=== PATIENT | female | born 1970 | race Caucasian/White ===

== ENCOUNTER → 2016-12-11 | Outpatient (CLI) | payer OTHER, MEDICAID | END | disposition home or self-care (01) | LOC: RAD 13:43 | PROVIDERS: ATTEND Neurological Surgery | DX: M41.87 Other forms of scoliosis, lumbosacral region (principal); M48.02 Spinal stenosis, cervical region; M40.40 Postural lordosis, site unspecified; M25.78 Osteophyte, vertebrae; M43.28 Fusion of spine, sacral and sacrococcygeal region | CPT/HCPCS: 72082 ==

== ENCOUNTER → 2016-12-25 | Outpatient (CLI) | payer OTHER, MEDICAID ==
[~2016-12-25] MED LIST: GABA300C10 PO; LEVO75TA5 PO; MELO-184 PO
[2016-12-25 10:33] LABS: ASPARTATE AMINO TRANSFERASE 12 U/L (15-37); BLOOD UREA NITROGEN 20 mg/dL (7-18)
== END | disposition home or self-care (01) ==
LOC: STAR 09:12
PROVIDERS: ATTEND Neurological Surgery
DX: Z01.818 Encounter for other preprocedural examination (principal); M54.2 Cervicalgia; R79.1 Abnormal coagulation profile
CPT/HCPCS: 36415; 71020; 80053; 84703; 85025; 85610; 85730; 93005

== ENCOUNTER 2017-01-06 08:00 | Inpatient (IN) | payer OTHER, MEDICAID ==
[~2017-01-06] VITALS: Ht 193 cm; Wt 89.3 kg
[2017-01-06] MEDS ORDERED: FENTANYL PF 250 MCG/5ML ONE (08:03)
[2017-01-06] MEDS ORDERED: MIDAZOLAM 1 MG/ML, 2ML ONE (08:03)
[2017-01-06] MEDS ORDERED: LACTATED RINGERS 1,000 ML IV SCH (08:39)
[2017-01-06 08:43] VITALS: BP 126/72
[2017-01-06] MEDS ORDERED: THROMBIN 20,000 UNIT VIAL TP ONE (10:11)
[2017-01-06] MEDS ORDERED: BACITRACIN 50,000 UNIT ONE (10:11)
[2017-01-06] MEDS ORDERED: BUPIVACAINE/PF-EPI 0.5% 1:200K ONE (10:11)
[2017-01-06] MEDS ORDERED: DEXAMETHASONE 4 MG/ML, 1ML ONE (10:24)
[2017-01-06] MEDS ORDERED: SUCCINYLCHOLINE 20 MG/ML, 10ML ONE (10:24)
[2017-01-06] MEDS ORDERED: PROPOFOL 10 MG/ML, 20ML ONE (10:24)
[2017-01-06] MEDS ORDERED: ONDANSETRON 2MG/ML, 2ML ONE (10:24)
[2017-01-06] MEDS ORDERED: ROCURONIUM 10 MG/ML ONE (10:24)
[2017-01-06] MEDS ORDERED: CEFAZOLIN 1,000 MG ONE (10:24)
[2017-01-06] MEDS ORDERED: PROPOFOL 10 MG/ML, 50ML ONE (10:24)
[2017-01-06] MEDS ORDERED: ACETAMINOPHEN 325 MG TABLET PO PRN (10:30)
[2017-01-06] MEDS ORDERED: MEPERIDINE/PF 25MG/0.5ML IVPush PRN (10:30)
[2017-01-06] MEDS ORDERED: hydrALAzine 20 MG/ML, 1ML IV PRN (10:30)
[2017-01-06] MEDS ORDERED: OXYcodone 5 MG/5 ML ORAL.SOL UDC PO PRN (10:30)
[2017-01-06] MEDS ORDERED: METOCLOPRAMIDE 5 MG/ML, 2ML IV PRN (10:30)
[2017-01-06] MEDS ORDERED: ONDANSETRON 2MG/ML, 2ML IVPush PRN (10:30)
[2017-01-06] MEDS ORDERED: LABETALOL 5MG/ML, 20ML IV PRN (10:30)
[2017-01-06] MEDS ORDERED: OXYcodone 5 MG/5 ML ORAL.SOL UDC ONE (14:07)
[2017-01-06] MEDS ORDERED: FENTANYL PF 100 MCG/2ML ONE ×2 (14:07→15:02)
[2017-01-06] MEDS: FENTANYL PF 100 MCG/2ML IV PRN ×3 (14:10→15:04)
[2017-01-06] MEDS ORDERED: HYDROmorphone 2 MG/ML, 1ML ONE (14:22)
[2017-01-06] MEDS: HYDROmorphone 1 MG/ML, 1ML IV PRN ×4 (14:25→15:20)
[2017-01-06] MEDS: morphine SULFATE 10 MG/ML, 1ML IV PRN ×2 (16:16→21:28)
[2017-01-06] MEDS ORDERED: DIPHENHYDRAMINE 50 MG CAPSULE PO PRN (16:30)
[2017-01-06] MEDS ORDERED: HYDROcodone/APAP 5/325 TABLET PO PRN (16:30)
[2017-01-06] MEDS ORDERED: METHOCARBAMOL 1,000 MG in DEXTROSE 5% 100 ML IV ONE (16:30)
[2017-01-06] MEDS ORDERED: BISACODYL 10 MG SUPP PR PRN (16:30)
[2017-01-06] MEDS ORDERED: DIPHENHYDRAMINE 50 MG/ML, 1ML IM PRN (16:30)
[2017-01-06] MEDS ORDERED: MAGNESIUM HYDROXIDE 8%, 30ML UDC PO PRN (16:30)
[2017-01-06] MEDS ORDERED: HYDROcodone/APAP 10/325 MG TABLET PO PRN (16:30)
[2017-01-06] MEDS ORDERED: ONDANSETRON 2MG/ML, 2ML IV PRN (16:30)
[2017-01-06] MEDS: NS + 20MEQ KCL 1,000 ML IV SCH (17:16)
[2017-01-06] MEDS: OXYcodone/APAP 10/325MG TABLET PO PRN ×2 (17:47→22:58)
[2017-01-06] MEDS: DEXAMETHASONE 4 MG/ML, 1ML IV SCH (18:12)
[2017-01-06 20:14] VITALS: BP 115/72
[2017-01-06] MEDS: CALCIUM CARBONATE 500 MG TAB.CHEW PO SCH (21:28)
[2017-01-06] MEDS: GABAPENTIN 300 MG CAPSULE PO SCH (21:28)
[2017-01-06] MEDS: SENNA/DOCUSATE TABLET PO SCH (21:28)
[2017-01-07] MEDS: METHOCARBAMOL 750 MG in DEXTROSE 5% 100 ML IV SCH ×2 (00:14→08:59)
[2017-01-07] MEDS: DEXAMETHASONE 4 MG/ML, 1ML IV SCH ×2 (00:14→05:29)
[2017-01-07 02:33] VITALS: BP 121/74
[2017-01-07] MEDS: NS + 20MEQ KCL 1,000 ML IV SCH (04:33)
[2017-01-07] MEDS: morphine SULFATE 10 MG/ML, 1ML IV PRN (05:29)
[2017-01-07] MEDS ORDERED: LEVOTHYROXINE 75 MCG TABLET PO SCH (06:00)
[2017-01-07 06:45] VITALS: BP 145/81
[2017-01-07] MEDS: OXYcodone/APAP 10/325MG TABLET PO PRN ×2 (07:06→11:19)
[2017-01-07] MEDS: GABAPENTIN 300 MG CAPSULE PO SCH (08:59)
[2017-01-07] MEDS: CALCIUM CARBONATE 500 MG TAB.CHEW PO SCH (08:59)
[2017-01-07] MEDS: SENNA/DOCUSATE TABLET PO SCH (08:59)
[2017-01-07] MEDS ORDERED: CHOLECALCIFEROL 1,000 UNIT TABLET PO SCH (09:00)
[2017-01-07] MEDS ORDERED: OXYC-229 PO (12:25)
[2017-01-07] MEDS ORDERED: SENN1TAB7 PO (12:27)
[2017-01-07] MEDS ORDERED: CALC400T6 PO (12:28)
[2017-01-07] MEDS ORDERED: METH4TAB2 PO (12:29)
[2017-01-07] MEDS ORDERED: CHOL10003 PO (12:29)
[2017-01-07] MEDS ORDERED: METH750T87 PO (12:33)
[2017-01-09] MEDS ORDERED: METHOCARBAMOL 750 MG TABLET PO SCH (00:30)
== END 2017-01-07 12:55 | disposition home or self-care (01) | DRG 472 ==
LOC: ORIP 08:00 → 4NOR 15:44 → DCLOUNGE 01-07 12:08
PROVIDERS: ADMIT Neurological Surgery; ATTEND Neurological Surgery
PROC: 0RG20A0 Fusion of 2 or more Cervical Vertebral Joints with Interbody Fusion Device, Anterior Approach, Anterior Column, Open Approach (ICD-10-PCS; principal; 2017-01-06 10:00)
DX: M48.02 Spinal stenosis, cervical region (principal); G95.20 Unspecified cord compression; M40.202 Unspecified kyphosis, cervical region; M25.78 Osteophyte, vertebrae
CPT/HCPCS: 72040; C1713; J0690; J1100; J1170; J2250; J2405; J2704; J3010; J3480; C1778; J0330; J2270; J2800; J7120

== ENCOUNTER 2017-03-24 08:49 | Inpatient (IN) | payer OTHER, MEDICAID ==
[~2017-03-24] VITALS: Ht 162.6 cm; Wt 79.0 kg
[~2017-03-24 08:49] MED LIST changes: +BACITRACIN 50,000 UNIT ONE; +BACITRACIN OINT 500U/GM, 15 GM ONE; +BUPIVACAINE/PF-EPI 0.5% 1:200K ONE; +CALC400T6 PO; +CHOL10003 PO; +METH4TAB2 PO; +METH750T87 PO; +OMEP-110 PO; +OXYC-229 PO; +SENN1TAB7 PO; +THROMBIN 20,000 UNIT VIAL TP ONE
[2017-03-24] MEDS ORDERED: LACTATED RINGERS 1,000 ML IV SCH (09:20)
[2017-03-24 09:21] VITALS: BP 126/81
[2017-03-24] MEDS ORDERED: REMIFENTANIL 2 MG ONE ×2 (11:48→12:45)
[2017-03-24] MEDS ORDERED: FENTANYL PF 250 MCG/5ML ONE (11:48)
[2017-03-24] MEDS ORDERED: MIDAZOLAM 1 MG/ML, 2ML ONE (11:48)
[2017-03-24] MEDS ORDERED: CEFAZOLIN 1,000 MG ONE (11:54)
[2017-03-24] MEDS ORDERED: DEXAMETHASONE 4 MG/ML, 1ML ONE (11:54)
[2017-03-24] MEDS ORDERED: SUCCINYLCHOLINE 20 MG/ML, 10ML ONE (11:54)
[2017-03-24] MEDS ORDERED: ONDANSETRON 2MG/ML, 2ML ONE (11:54)
[2017-03-24] MEDS ORDERED: PROPOFOL 10 MG/ML, 50ML ONE (11:54)
[2017-03-24] MEDS ORDERED: PROPOFOL 10 MG/ML, 20ML ONE (11:54)
[2017-03-24] MEDS ORDERED: BUPIVACAINE/PF-EPI 0.5% 1:200K INFIL ONE (13:11)
[2017-03-24] MEDS ORDERED: hydrALAzine 20 MG/ML, 1ML IV PRN (14:00)
[2017-03-24] MEDS ORDERED: ACETAMINOPHEN 325 MG TABLET PO PRN ×2 (14:00→16:30)
[2017-03-24] MEDS ORDERED: MIDAZOLAM 1 MG/ML, 2ML IV PRN (14:00)
[2017-03-24] MEDS ORDERED: EPHEDRINE 50 MG/ML, 1ML IVPush PRN (14:00)
[2017-03-24] MEDS ORDERED: ONDANSETRON 2MG/ML, 2ML IVPush PRN (14:00)
[2017-03-24] MEDS ORDERED: LABETALOL 5MG/ML, 20ML IV PRN ×2 (14:00→16:30)
[2017-03-24] MEDS ORDERED: MEPERIDINE/PF 25MG/0.5ML IVPush PRN (14:00)
[2017-03-24] MEDS ORDERED: PROMETHAZINE 25 MG/ML, 1ML IV PRN (14:00)
[2017-03-24] MEDS ORDERED: OXYcodone 5 MG/5 ML ORAL.SOL UDC PO PRN (14:00)
[2017-03-24] MEDS ORDERED: HYDROcodone/APAP 7.5-325MG/15ML UDC PO PRN (14:00)
[2017-03-24] MEDS: HYDROmorphone 1 MG/ML, 1ML IV PRN ×2 (14:40→14:54)
[2017-03-24] MEDS ORDERED: HYDROmorphone 1 MG/ML, 1ML ONE (14:40)
[2017-03-24] MEDS ORDERED: FENTANYL PF 100 MCG/2ML ONE (14:40)
[2017-03-24] MEDS: FENTANYL PF 100 MCG/2ML IV PRN ×2 (14:44→14:53)
[2017-03-24] MEDS ORDERED: MEPERIDINE/PF 50 MG/ML ONE (14:58)
[2017-03-24] MEDS ORDERED: DIAZEPAM 5 MG/ML, 2ML IV PRN (15:00)
[2017-03-24 16:00] VITALS: BP 143/87
[2017-03-24] MEDS ORDERED: ACETAMINOPHEN 650 MG SUPP PR PRN (16:30)
[2017-03-24] MEDS ORDERED: morphine SULFATE 10 MG/ML, 1ML IV PRN (16:30)
[2017-03-24] MEDS ORDERED: ONDANSETRON 2MG/ML, 2ML IV PRN (16:30)
[2017-03-24] MEDS ORDERED: METHOCARBAMOL 1,000 MG in DEXTROSE 5% 100 ML IV ONE (16:30)
[2017-03-24] MEDS ORDERED: BISACODYL 10 MG SUPP PR PRN (16:30)
[2017-03-24] MEDS ORDERED: MAGNESIUM HYDROXIDE 8%, 30ML UDC PO PRN (16:30)
[2017-03-24] MEDS: OMEPRAZOLE 20 MG CAPSULE.DR PO SCH (17:32)
[2017-03-24 18:57] VITALS: BP 140/81
[2017-03-24] MEDS ORDERED: DIAZEPAM 5 MG/ML, 2ML IVPush PRN (19:30)
[2017-03-24] MEDS ORDERED: HYDROmorphone 1 MG/ML, 1ML IV PRN (19:30)
[2017-03-24] MEDS ORDERED: CEFAZOLIN PMX 1GM/50ML 50 ML IVPB SCH (20:00)
[2017-03-24] MEDS: NS + 20MEQ KCL 1,000 ML IV SCH (20:11)
[2017-03-24] MEDS: CEFAZOLIN PMX 1GM/50ML 50 ML IVPB SCH (20:12)
[2017-03-24] MEDS: GABAPENTIN 300 MG CAPSULE PO SCH (20:18)
[2017-03-24] MEDS: CALCIUM CARBONATE 500 MG TAB.CHEW PO SCH (20:19)
[2017-03-24] MEDS: OxyconTIN ER 10 MG TAB.ER PO SCH (20:23)
[2017-03-24] MEDS: SENNA/DOCUSATE TABLET PO SCH (20:23)
[2017-03-24 23:23] VITALS: BP 137/80
[2017-03-25] MEDS: METHOCARBAMOL 750 MG in DEXTROSE 5% 100 ML IV SCH ×4 (00:18→23:39)
[2017-03-25 03:42] VITALS: BP 150/45
[2017-03-25] MEDS: CEFAZOLIN PMX 1GM/50ML 50 ML IVPB SCH (03:59)
[2017-03-25] MEDS: OXYcodone IR 5MG TABLET PO PRN ×4 (03:59→21:22)
[2017-03-25] MEDS: LEVOTHYROXINE 75 MCG TABLET PO SCH (05:40)
[2017-03-25 07:20] VITALS: BP 159/89
[2017-03-25] MEDS: CHOLECALCIFEROL 1,000 UNIT TABLET PO SCH (09:47)
[2017-03-25] MEDS: CALCIUM CARBONATE 500 MG TAB.CHEW PO SCH ×2 (09:47→20:28)
[2017-03-25] MEDS: GABAPENTIN 300 MG CAPSULE PO SCH ×3 (09:47→20:28)
[2017-03-25] MEDS: OxyconTIN ER 10 MG TAB.ER PO SCH ×2 (09:48→20:28)
[2017-03-25] MEDS: OMEPRAZOLE 20 MG CAPSULE.DR PO SCH ×2 (09:48→18:20)
[2017-03-25] MEDS: SENNA/DOCUSATE TABLET PO SCH ×2 (09:49→20:28)
[2017-03-25] MEDS: NS + 20MEQ KCL 1,000 ML IV SCH ×2 (11:14→23:40)
[2017-03-25] MEDS ORDERED: DIAZEPAM 5 MG/ML, 10ML VIAL IVPush PRN (13:39)
[2017-03-25 20:58] VITALS: BP 141/80
[2017-03-25] MEDS ORDERED: ZOLPIDEM 5MG TABLET PO PRN (21:00)
[2017-03-26] MEDS: OXYcodone IR 5MG TABLET PO PRN ×5 (02:21→22:46)
[2017-03-26 03:14] VITALS: BP 130/80
[2017-03-26] MEDS: LEVOTHYROXINE 75 MCG TABLET PO SCH (05:45)
[2017-03-26] MEDS: OxyconTIN ER 10 MG TAB.ER PO SCH ×2 (08:29→22:07)
[2017-03-26] MEDS: GABAPENTIN 300 MG CAPSULE PO SCH ×3 (08:29→22:44)
[2017-03-26] MEDS: OMEPRAZOLE 20 MG CAPSULE.DR PO SCH ×2 (08:29→16:01)
[2017-03-26] MEDS: METHOCARBAMOL 750 MG in DEXTROSE 5% 100 ML IV SCH (08:29)
[2017-03-26] MEDS: SENNA/DOCUSATE TABLET PO SCH ×2 (08:29→22:07)
[2017-03-26] MEDS: CALCIUM CARBONATE 500 MG TAB.CHEW PO SCH ×2 (09:00→22:07)
[2017-03-26] MEDS: CHOLECALCIFEROL 1,000 UNIT TABLET PO SCH (09:00)
[2017-03-26 09:01] VITALS: BP 133/56
[2017-03-26] MEDS ORDERED: METHOCARBAMOL 750 MG TABLET PO PRN (09:30)
[2017-03-26] MEDS: NS + 20MEQ KCL 1,000 ML IV SCH ×2 (10:33→22:36)
[2017-03-26 13:17] VITALS: BP 145/61
[2017-03-26] MEDS ORDERED: MAGNESIUM HYDROXIDE 8%, 30ML UDC PO ONE (18:00)
[2017-03-26 20:43] VITALS: BP 113/76
[2017-03-27] MEDS ORDERED: METHOCARBAMOL 750 MG TABLET PO SCH (00:30)
[2017-03-27 02:46] VITALS: BP 110/67
[2017-03-27] MEDS: OXYcodone IR 5MG TABLET PO PRN ×3 (04:54→16:56)
[2017-03-27] MEDS: LEVOTHYROXINE 75 MCG TABLET PO SCH (06:19)
[2017-03-27 07:45] VITALS: BP 109/62
[2017-03-27] MEDS: GABAPENTIN 300 MG CAPSULE PO SCH ×3 (09:21→21:19)
[2017-03-27] MEDS: CALCIUM CARBONATE 500 MG TAB.CHEW PO SCH ×3 (09:21→21:19)
[2017-03-27] MEDS: OMEPRAZOLE 20 MG CAPSULE.DR PO SCH ×2 (09:21→16:56)
[2017-03-27] MEDS: OxyconTIN ER 10 MG TAB.ER PO SCH ×2 (09:21→21:19)
[2017-03-27] MEDS: CHOLECALCIFEROL 1,000 UNIT TABLET PO SCH (09:21)
[2017-03-27] MEDS: SENNA/DOCUSATE TABLET PO SCH ×2 (09:22→21:19)
[2017-03-27] MEDS: NS + 20MEQ KCL 1,000 ML IV SCH ×2 (10:49→21:20)
[2017-03-27 14:08] VITALS: BP 123/79
[2017-03-27] MEDS: ENOXAPARIN 30 MG/0.3 ML SQ SCH (16:56)
[2017-03-27 18:36] VITALS: BP 121/78
[2017-03-28 00:24] VITALS: BP 115/77
[2017-03-28] MEDS: ENOXAPARIN 30 MG/0.3 ML SQ SCH ×2 (05:08→16:39)
[2017-03-28] MEDS: LEVOTHYROXINE 75 MCG TABLET PO SCH (05:08)
[2017-03-28] MEDS: OXYcodone IR 5MG TABLET PO PRN ×2 (05:08→08:02)
[2017-03-28] MEDS: CHOLECALCIFEROL 1,000 UNIT TABLET PO SCH (08:02)
[2017-03-28] MEDS: OMEPRAZOLE 20 MG CAPSULE.DR PO SCH ×2 (08:02→16:39)
[2017-03-28] MEDS: SENNA/DOCUSATE TABLET PO SCH ×2 (08:02→20:42)
[2017-03-28] MEDS: GABAPENTIN 300 MG CAPSULE PO SCH ×3 (08:02→20:43)
[2017-03-28] MEDS: CALCIUM CARBONATE 500 MG TAB.CHEW PO SCH ×2 (08:03→20:43)
[2017-03-28 08:04] VITALS: BP 82/45
[2017-03-28] MEDS ORDERED: OXYcodone IR 5MG TABLET PO PRN (09:00)
[2017-03-28] MEDS ORDERED: METHOCARBAMOL 750 MG TABLET PO PRN (09:00)
[2017-03-28] MEDS: OxyconTIN ER 10 MG TAB.ER PO SCH ×2 (09:09→20:43)
[2017-03-28] MEDS: NS + 20MEQ KCL 1,000 ML IV SCH ×2 (09:09→22:48)
[2017-03-28 14:45] VITALS: BP 103/68
[2017-03-28 16:29] VITALS: BP 112/75
[2017-03-28] MEDS ORDERED: BISACODYL 10 MG SUPP PR PRN (19:00)
[2017-03-28] MEDS ORDERED: ACETAMINOPHEN 650 MG SUPP PR PRN (19:00)
[2017-03-28] MEDS ORDERED: LACTATED RINGERS 1,000 ML IV SCH (19:00)
[2017-03-28] MEDS ORDERED: HYDROmorphone 1 MG/ML, 1ML IV PRN (19:00)
[2017-03-28] MEDS ORDERED: ZOLPIDEM 5MG TABLET PO PRN (19:00)
[2017-03-28] MEDS ORDERED: ONDANSETRON 2MG/ML, 2ML IV PRN (19:00)
[2017-03-28] MEDS ORDERED: ACETAMINOPHEN 325 MG TABLET PO PRN (19:00)
[2017-03-28] MEDS ORDERED: LABETALOL 5MG/ML, 20ML IV PRN (19:00)
[2017-03-28 20:56] VITALS: BP 112/65
[2017-03-28] MEDS: METHOCARBAMOL 750 MG TABLET PO PRN (21:05)
[2017-03-29] MEDS: OXYcodone IR 5MG TABLET PO PRN ×6 (00:37→22:56)
[2017-03-29 04:00] VITALS: BP 103/62
[2017-03-29] MEDS: METHOCARBAMOL 750 MG TABLET PO PRN ×4 (04:03→22:56)
[2017-03-29] MEDS: LEVOTHYROXINE 75 MCG TABLET PO SCH (04:39)
[2017-03-29] MEDS: ENOXAPARIN 30 MG/0.3 ML SQ SCH ×2 (04:40→17:05)
[2017-03-29 07:00] VITALS: BP 99/65
[2017-03-29] MEDS: CHOLECALCIFEROL 1,000 UNIT TABLET PO SCH (08:09)
[2017-03-29] MEDS: OMEPRAZOLE 20 MG CAPSULE.DR PO SCH ×2 (08:09→17:05)
[2017-03-29] MEDS: SENNA/DOCUSATE TABLET PO SCH ×2 (08:09→21:44)
[2017-03-29] MEDS: CALCIUM CARBONATE 500 MG TAB.CHEW PO SCH ×2 (08:09→21:44)
[2017-03-29] MEDS: OxyconTIN ER 10 MG TAB.ER PO SCH ×2 (08:09→21:44)
[2017-03-29] MEDS: GABAPENTIN 300 MG CAPSULE PO SCH ×3 (08:09→21:44)
[2017-03-29] MEDS ORDERED: MAGNESIUM CITRATE 300ML ORAL SOL PO ONE (09:00)
[2017-03-29] MEDS: NS + 20MEQ KCL 1,000 ML IV SCH ×2 (10:51→22:45)
[2017-03-29 14:05] VITALS: BP 98/67
[2017-03-29 19:00] VITALS: BP 108/73
[2017-03-29] MEDS ORDERED: CEFTRIAXONE PMX 1GM/50ML 50 ML IV SCH (22:00)
[2017-03-30 02:26] VITALS: BP 97/63
[2017-03-30] MEDS: OXYcodone IR 5MG TABLET PO PRN ×3 (03:14→12:12)
[2017-03-30] MEDS: ENOXAPARIN 30 MG/0.3 ML SQ SCH (05:12)
[2017-03-30] MEDS: METHOCARBAMOL 750 MG TABLET PO PRN (05:12)
[2017-03-30] MEDS: LEVOTHYROXINE 75 MCG TABLET PO SCH (05:12)
[2017-03-30 07:18] VITALS: BP 109/72
[2017-03-30 08:07] VITALS: BP 116/89
[2017-03-30] MEDS: CALCIUM CARBONATE 500 MG TAB.CHEW PO SCH (08:08)
[2017-03-30] MEDS: GABAPENTIN 300 MG CAPSULE PO SCH (08:08)
[2017-03-30] MEDS: CHOLECALCIFEROL 1,000 UNIT TABLET PO SCH (08:08)
[2017-03-30] MEDS: OMEPRAZOLE 20 MG CAPSULE.DR PO SCH (08:08)
[2017-03-30] MEDS: SENNA/DOCUSATE TABLET PO SCH (08:09)
[2017-03-30] MEDS: OxyconTIN ER 10 MG TAB.ER PO SCH (09:17)
[2017-03-30] MEDS ORDERED: OXYC10TA32 PO ×2 (09:50→14:33)
[2017-03-30] MEDS ORDERED: OXYC10TA6 PO (09:53)
[2017-03-30] MEDS ORDERED: METH750T87 PO (09:57)
[2017-03-30] MEDS ORDERED: CIPR250T27 PO (10:00)
[2017-03-30] MEDS: NS + 20MEQ KCL 1,000 ML IV SCH (10:57)
[2017-03-30] MEDS ORDERED: CALC300T5 PO (14:32)
[2017-03-30] MEDS ORDERED: SENN1TAB7 PO (14:33)
[2017-03-30 14:50] VITALS: BP 116/79
== END 2017-03-30 14:45 | disposition home or self-care (01) | DRG 472 ==
LOC: ORIP 08:49 → 4NOR 16:12
PROVIDERS: ADMIT Neurological Surgery; ATTEND Neurological Surgery
PROC: 0RG40J1 Fusion of Cervicothoracic Vertebral Joint with Synthetic Substitute, Posterior Approach, Posterior Column, Open Approach (ICD-10-PCS; 2017-03-24)
PROC: 4A11X4G Monitoring of Peripheral Nervous Electrical Activity, Intraoperative, External Approach (ICD-10-PCS; 2017-03-24)
PROC: 0RG20J1 Fusion of 2 or more Cervical Vertebral Joints with Synthetic Substitute, Posterior Approach, Posterior Column, Open Approach (ICD-10-PCS; principal; 2017-03-24 11:00)
DX: M53.2X2 Spinal instabilities, cervical region (principal); N39.0 Urinary tract infection, site not specified; G95.20 Unspecified cord compression; M48.04 Spinal stenosis, thoracic region; M48.02 Spinal stenosis, cervical region; G43.909 Migraine, unspecified, not intractable, without status migrainosus; Z90.49 Acquired absence of other specified parts of digestive tract; Z96.649 Presence of unspecified artificial hip joint; Z88.8 Allergy status to other drugs, medicaments and biological substances; Z88.1 Allergy status to other antibiotic agents; W06.XXXA Fall from bed, initial encounter; Y93.89 Activity, other specified; Y92.89 Other specified places as the place of occurrence of the external cause; Y99.8 Other external cause status; M53.2X3 Spinal instabilities, cervicothoracic region
CPT/HCPCS: 36415; 72040; 81001; 86850; 86900; 87077; 87086; 87186; C1713; J0690; J0696; J1100; J1170; J1650; J2175; J2250; J2405; J2704; J3010; J3360; J3480; C1762; J0330; J2270; J2800; J7120

== ENCOUNTER → 2018-01-03 | Outpatient (CLI) | payer OTHER, MEDICAID ==
[~2018-01-03] MED LIST changes: -BACITRACIN 50,000 UNIT ONE; -BACITRACIN OINT 500U/GM, 15 GM ONE; -BUPIVACAINE/PF-EPI 0.5% 1:200K ONE; +CALC300T5 PO; +CIPR250T27 PO; +DULO60CA7 PO; +ESTR1PAT25 TP; +GABA600T2 PO; -MELO-184 PO; +MELO15TA24 PO; -OXYC-229 PO; +OXYC-307 PO; +OXYC10TA47 PO; +OXYC10TA6 PO; +OXYC5CAP2 PO; -THROMBIN 20,000 UNIT VIAL TP ONE
== END ==
LOC: STAR 13:39
PROVIDERS: ATTEND Orthopaedic Surgery
DX: Z02.9 Encounter for administrative examinations, unspecified (principal)

== ENCOUNTER 2018-01-07 10:55 | Day surgery (SDC) | payer OTHER, MEDICAID ==
[~2018-01-07] VITALS: Ht 162.6 cm; Wt 78.8 kg
[2018-01-07] MEDS ORDERED: LACTATED RINGERS 1,000 ML IV SCH (11:22)
[2018-01-07 11:27] VITALS: BP 112/69
[2018-01-07] MEDS ORDERED: MIDAZOLAM 1 MG/ML, 2ML ONE (12:37)
[2018-01-07] MEDS ORDERED: FENTANYL PF 100 MCG/2ML ONE ×2 (12:37→13:33)
[2018-01-07] MEDS ORDERED: BUPIVACAINE/PF 0.5% ONE (12:40)
[2018-01-07] MEDS ORDERED: ACETAMINOPHEN 500 MG TABLET ONE (12:41)
[2018-01-07] MEDS ORDERED: ONDANSETRON ODT 8 MG ONE (12:42)
[2018-01-07] MEDS ORDERED: PROPOFOL 10 MG/ML, 20ML ONE (12:51)
[2018-01-07] MEDS ORDERED: DEXAMETHASONE 4 MG/ML, 1ML ONE (12:51)
[2018-01-07] MEDS ORDERED: CEFAZOLIN 1,000 MG ONE (12:51)
[2018-01-07] MEDS ORDERED: METOPROLOL 1 MG/ML, 5ML IV PRN (13:30)
[2018-01-07] MEDS ORDERED: HYDROcodone/APAP 7.5-325MG/15ML UDC PO PRN (13:30)
[2018-01-07] MEDS ORDERED: KETOROLAC 30 MG/1 ML IV PRN (13:30)
[2018-01-07] MEDS ORDERED: hydrALAzine 20 MG/ML, 1ML IV PRN (13:30)
[2018-01-07] MEDS ORDERED: EPHEDRINE 50 MG/ML, 1ML IVPush PRN (13:30)
[2018-01-07] MEDS ORDERED: LABETALOL 5MG/ML, 20ML IV PRN (13:30)
[2018-01-07] MEDS ORDERED: ALBUTEROL SULFATE 2.5 MG/3 ML NPPB PRN (13:30)
[2018-01-07] MEDS ORDERED: MEPERIDINE/PF 25MG/0.5ML IVPush PRN (13:30)
[2018-01-07] MEDS ORDERED: HALOPERIDOL 5 MG/ML IV PRN (13:30)
[2018-01-07] MEDS ORDERED: DIAZEPAM 5 MG/ML, 2ML IVPush PRN (13:30)
[2018-01-07] MEDS ORDERED: MIDAZOLAM 1 MG/ML, 2ML IV PRN (13:30)
[2018-01-07] MEDS ORDERED: MORPHINE SULFATE 4 MG/ML, 1ML IVPush PRN (13:30)
[2018-01-07] MEDS ORDERED: OXYcodone 5 MG/5 ML ORAL.SOL UDC ONE (13:33)
[2018-01-07] MEDS: FENTANYL PF 100 MCG/2ML IV PRN ×2 (13:35→13:47)
[2018-01-07] MEDS: OXYcodone 5 MG/5 ML ORAL.SOL UDC PO PRN ×2 (13:36→14:43)
[2018-01-07] MEDS ORDERED: OXYcodone IR 5MG TABLET ONE (14:41)
== END 2018-01-07 15:15 | disposition home or self-care (01) ==
LOC: OUT 10:55
PROVIDERS: ATTEND Orthopaedic Surgery
DX: G56.01 Carpal tunnel syndrome, right upper limb (principal); E03.9 Hypothyroidism, unspecified; Z88.1 Allergy status to other antibiotic agents; Z90.710 Acquired absence of both cervix and uterus; Z98.890 Other specified postprocedural states; Z87.39 Personal history of other diseases of the musculoskeletal system and connective tissue; Z88.8 Allergy status to other drugs, medicaments and biological substances
CPT/HCPCS: 64721; J0690; J1100; J2250; J2704; J3010; J3490; J7120

== ENCOUNTER → 2018-07-18 | Outpatient (CLI) | payer OTHER, MEDICAID ==
[~2018-07-18] MED LIST changes: +ALEN70TA3 PO; -SENN1TAB7 PO; +SENN1TAB8 PO; +[UNRECOGNIZED DRUG - REMARK] PO
[2018-07-18 14:19] LABS: BASOPHILS # (AUTO) 0.08 x10^3/uL (0-0.1); BASOPHILS % (AUTO) 1 % (0-1); EOSINOPHILS # (AUTO) 0.23 x10^3/uL (0-0.4); EOSINOPHILS % (AUTO) 3 % (1-7); LYMPHOCYTES # (AUTO) 1.97 x10^3/uL (1-3.4); LYMPHOCYTES % (AUTO) 24 % (22-44); MD NO; MEAN CORPUSCULAR HEMOGLOBIN 31.4 pg (27.0-34.8); MEAN CORPUSCULAR HGB CONC 33.7 g/dL (32.4-35.8); MEAN CORPUSCULAR VOLUME 93.4 fL (80-100); MEAN PLATELET VOLUME 8.4 fL (7.4-10.4); MONOCYTES # (AUTO) 0.57 x10^3/uL (0.2-0.8); MONOCYTES % (AUTO) 7 % (2-9); NEUTROPHILS # (AUTO) 5.37 x10^3/uL (1.8-6.8); NEUTROPHILS % (AUTO) 65 % (42-75); PLATELET COUNT 277 x10^3/uL (130-400); RED BLOOD COUNT 4.22 x10^6/uL (3.82-5.3); RED CELL DISTRIBUTION WIDTH 15.3 % (9.6-15.2)
[2018-07-18 14:29] LABS: INTERNATIONAL NORMALIZED RATIO 0.98 (0.93-1.1); PROTHROMBIN TIME 10.4 Seconds (9.6-11.5)
[2018-07-18 14:31] LABS: ALANINE AMINOTRANSFERASE 26 U/L (12-78); ALBUMIN 4.1 g/dL (3.4-5.0); ANION GAP 8 mmol/L (5-15); CALCIUM 8.5 mg/dL (8.5-10.1); CHLORIDE 105 mmol/L (98-107); CREATININE 0.82 mg/dL (0.55-1.02)
[2018-07-18 14:33] LABS: ALKALINE PHOSPHATASE 72 U/L (45-117); BILIRUBIN,TOTAL 0.3 mg/dL (0.2-1.0); TOTAL PROTEIN 7.6 g/dL (6.4-8.2)
== END | disposition home or self-care (01) ==
LOC: STAR 12:57
PROVIDERS: ATTEND Neurological Surgery
DX: Z01.818 Encounter for other preprocedural examination (principal); J98.11 Atelectasis
CPT/HCPCS: 36415; 71046; 80053; 80323; 85025; 85610; 85730; 93005; G0480

== ENCOUNTER 2018-07-27 05:11 | Inpatient (IN) | payer OTHER, MEDICAID ==
[~2018-07-27] VITALS: Ht 162.6 cm; Wt 82.8 kg
[2018-07-27] MEDS ORDERED: LACTATED RINGERS 1,000 ML IV SCH (06:02)
[2018-07-27 06:37] VITALS: BP 102/70
[2018-07-27] MEDS ORDERED: BUPIVACAINE/PF-EPI 0.5% 1:200K ONE (07:10)
[2018-07-27] MEDS ORDERED: THROMBIN 20,000 UNIT VIAL TP ONE (07:10)
[2018-07-27] MEDS ORDERED: BACITRACIN 50,000 UNIT ONE (07:10)
[2018-07-27] MEDS ORDERED: FENTANYL PF 250 MCG/5ML ONE ×2 (07:25→08:19)
[2018-07-27] MEDS ORDERED: MIDAZOLAM 1 MG/ML, 2ML ONE (07:25)
[2018-07-27] MEDS ORDERED: GABAPENTIN 300 MG CAPSULE PO ONE (07:30)
[2018-07-27] MEDS ORDERED: ACETAMINOPHEN 500 MG TABLET PO ONE (07:30)
[2018-07-27] MEDS ORDERED: OXYcodone IR 5MG TABLET PO ONE (07:30)
[2018-07-27] MEDS ORDERED: PROPOFOL 50 ML ONE ×3 (07:31→09:12)
[2018-07-27] MEDS ORDERED: CEFAZOLIN 1,000 MG ONE (07:35)
[2018-07-27] MEDS ORDERED: ROCURONIUM 10 MG/ML,10ML ONE (07:35)
[2018-07-27] MEDS ORDERED: SUCCINYLCHOLINE 20 MG/ML, 10ML ONE (07:35)
[2018-07-27] MEDS ORDERED: DEXAMETHASONE 4 MG/ML, 1ML ONE (07:35)
[2018-07-27] MEDS ORDERED: HALOPERIDOL 5 MG/ML IV PRN (08:30)
[2018-07-27] MEDS ORDERED: hydrALAzine 20 MG/ML, 1ML IV PRN (08:30)
[2018-07-27] MEDS ORDERED: LABETALOL 5MG/ML, 20ML IV PRN (08:30)
[2018-07-27] MEDS ORDERED: FENTANYL PF 100 MCG/2ML IV PRN (08:30)
[2018-07-27] MEDS ORDERED: MEPERIDINE/PF 25MG/0.5ML IVPush PRN (08:30)
[2018-07-27] MEDS ORDERED: DIPHENHYDRAMINE 50 MG/ML, 1ML IVPush PRN ×2 (08:30→13:00)
[2018-07-27] MEDS ORDERED: OXYcodone 5 MG/5 ML ORAL.SOL UDC PO PRN (08:30)
[2018-07-27] MEDS ORDERED: HYDROmorphone 2 MG/ML, 1ML ONE (10:14)
[2018-07-27] MEDS: HYDROmorphone 2 MG/ML, 1ML IVPush PRN ×2 (10:20→10:35)
[2018-07-27] MEDS ORDERED: HALOPERIDOL 5 MG/ML ONE (10:23)
[2018-07-27] MEDS: DEXAMETHASONE 4 MG/ML, 1ML IV SCH ×2 (12:21→18:05)
[2018-07-27] MEDS ORDERED: BISACODYL 10 MG SUPP PR PRN (13:00)
[2018-07-27] MEDS ORDERED: ONDANSETRON 2MG/ML, 2ML IV PRN (13:00)
[2018-07-27] MEDS ORDERED: morphine SULFATE 10 MG/ML, 1ML IV PRN (13:00)
[2018-07-27] MEDS ORDERED: DIPHENHYDRAMINE 50 MG/ML, 1ML IM PRN (13:00)
[2018-07-27] MEDS ORDERED: OXYcodone/APAP 5/325MG TABLET PO PRN (13:00)
[2018-07-27] MEDS ORDERED: HYDROcodone/APAP 10/325 MG TABLET PO PRN (13:00)
[2018-07-27] MEDS ORDERED: METHOCARBAMOL 1,000 MG in DEXTROSE 5% 100 ML IV ONE (13:00)
[2018-07-27] MEDS ORDERED: MAGNESIUM HYDROXIDE 8%, 30ML UDC PO PRN (13:00)
[2018-07-27] MEDS ORDERED: LORazepam 1MG TABLET PO PRN (13:00)
[2018-07-27] MEDS ORDERED: DIPHENHYDRAMINE 50 MG CAPSULE PO PRN (13:00)
[2018-07-27] MEDS: NS + 20MEQ KCL 1,000 ML IV SCH (15:16)
[2018-07-27] MEDS: GABAPENTIN 300 MG CAPSULE PO SCH ×2 (15:49→22:14)
[2018-07-27] MEDS: CEFAZOLIN PMX 2GM/50ML 50 ML IVPB SCH (16:09)
[2018-07-27] MEDS ORDERED: CYCLOBENZAPRINE 10 MG TABLET PO PRN (18:30)
[2018-07-27 20:35] VITALS: BP 101/69
[2018-07-27] MEDS ORDERED: ZOLPIDEM 5MG TABLET PO PRN (21:00)
[2018-07-27] MEDS: METHOCARBAMOL 750 MG in DEXTROSE 5% 100 ML IV SCH (22:14)
[2018-07-28 00:15] VITALS: BP 106/68
[2018-07-28] MEDS: DEXAMETHASONE 4 MG/ML, 1ML IV SCH ×4 (00:54→18:06)
[2018-07-28] MEDS: CEFAZOLIN PMX 2GM/50ML 50 ML IVPB SCH ×2 (00:54→08:09)
[2018-07-28 04:39] VITALS: BP 98/60
[2018-07-28] MEDS: METHOCARBAMOL 750 MG in DEXTROSE 5% 100 ML IV SCH ×2 (05:16→18:06)
[2018-07-28] MEDS: NS + 20MEQ KCL 1,000 ML IV SCH ×2 (06:23→22:43)
[2018-07-28] MEDS: LEVOTHYROXINE 100 MCG TABLET PO SCH (06:24)
[2018-07-28 06:52] VITALS: BP 96/61
[2018-07-28] MEDS: CHOLECALCIFEROL 1,000 UNIT TABLET PO SCH (08:11)
[2018-07-28] MEDS: GABAPENTIN 300 MG CAPSULE PO SCH ×3 (08:11→19:32)
[2018-07-28] MEDS: DULOXETINE 30 MG CAPSULE.DR PO SCH (08:12)
[2018-07-28] MEDS: SENNA/DOCUSATE TABLET PO SCH (08:12)
[2018-07-28] MEDS: OXYcodone IR 5MG TABLET PO PRN ×4 (10:17→22:43)
[2018-07-28 13:39] VITALS: BP 114/72
[2018-07-28 19:36] VITALS: BP 104/68
[2018-07-29 01:11] VITALS: BP 98/63
[2018-07-29] MEDS: METHOCARBAMOL 750 MG in DEXTROSE 5% 100 ML IV SCH ×2 (01:57→10:47)
[2018-07-29] MEDS: LEVOTHYROXINE 100 MCG TABLET PO SCH (06:12)
[2018-07-29] MEDS: OXYcodone IR 5MG TABLET PO PRN ×2 (06:12→12:20)
[2018-07-29 06:48] VITALS: BP 109/65
[2018-07-29] MEDS: CHOLECALCIFEROL 1,000 UNIT TABLET PO SCH (09:43)
[2018-07-29] MEDS: GABAPENTIN 300 MG CAPSULE PO SCH (09:43)
[2018-07-29] MEDS: SENNA/DOCUSATE TABLET PO SCH (09:43)
[2018-07-29] MEDS: DULOXETINE 30 MG CAPSULE.DR PO SCH (09:43)
[2018-07-29 13:39] VITALS: BP 114/78
[2018-07-29] MEDS ORDERED: METH750T87 PO (15:25)
[2018-07-29] MEDS ORDERED: DOCU-131 PO (15:25)
[2018-07-29] MEDS ORDERED: OXYC5CAP2 PO (15:25)
[2018-07-29] MEDS ORDERED: METHOCARBAMOL 750 MG TABLET PO SCH (21:00)
[2018-07-31] MEDS ORDERED: ALENDRONATE 70 MG TABLET PO SCH (06:30)
== END 2018-07-29 16:24 | disposition home or self-care (01) | DRG 472 ==
LOC: ORIP 05:11 → 4NOR 11:24 → DCLOUNGE 07-29 16:00 → 3NW 07-29 16:17 → DCLOUNGE 07-29 16:21
PROVIDERS: ADMIT Neurological Surgery; ATTEND Neurological Surgery
PROC: 0RG40A0 Fusion of Cervicothoracic Vertebral Joint with Interbody Fusion Device, Anterior Approach, Anterior Column, Open Approach (ICD-10-PCS; 2018-07-27)
PROC: 0RP104Z Removal of Internal Fixation Device from Cervical Vertebral Joint, Open Approach (ICD-10-PCS; 2018-07-27)
PROC: 0RB50ZZ Excision of Cervicothoracic Vertebral Disc, Open Approach (ICD-10-PCS; 2018-07-27)
PROC: 0RG10A0 Fusion of Cervical Vertebral Joint with Interbody Fusion Device, Anterior Approach, Anterior Column, Open Approach (ICD-10-PCS; 2018-07-27)
PROC: 4A11X4G Monitoring of Peripheral Nervous Electrical Activity, Intraoperative, External Approach (ICD-10-PCS; 2018-07-27)
PROC: 0RB30ZZ Excision of Cervical Vertebral Disc, Open Approach (ICD-10-PCS; principal; 2018-07-27 07:30)
DX: M96.0 Pseudarthrosis after fusion or arthrodesis (principal); G95.9 Disease of spinal cord, unspecified; M48.02 Spinal stenosis, cervical region; Y83.8 Other surgical procedures as the cause of abnormal reaction of the patient, or of later complication, without mention of misadventure at the time of the procedure; Y92.89 Other specified places as the place of occurrence of the external cause; Z87.891 Personal history of nicotine dependence; E03.9 Hypothyroidism, unspecified; G89.29 Other chronic pain; G62.9 Polyneuropathy, unspecified; Z88.1 Allergy status to other antibiotic agents; Z88.8 Allergy status to other drugs, medicaments and biological substances; F19.10 Other psychoactive substance abuse, uncomplicated; M46.1 Sacroiliitis, not elsewhere classified
CPT/HCPCS: 36415; 72040; 86850; 86900; C1713; G0378; J0690; J1100; J1170; J2250; J2704; J3010; J3480; C1762; J0330; J1630; J2800; J7120

== ENCOUNTER 2018-09-24 18:29 | Emergency (ER) | payer OTHER, MEDICAID ==
[~2018-09-24] VITALS: Ht 162.6 cm; Wt 80.0 kg
[~2018-09-24 18:29] MED LIST changes: +DOCU-131 PO; -GABA600T2 PO; +GABA600T7 PO
[2018-09-24 18:45] VITALS: BP 115/72
--- NOTE | 2018-09-24 18:53 | NUR ---
PT AMBULATED TO ROOM WITH RN.
--- NOTE | 2018-09-24 19:04 | NUR ---
Pt resting on [place], changed into gown. Pt wearing [place] c-collar from home. Pt states that she had a same-level slip and fall today, and started experiencing midline cervical pain radiating to left side of neck. Pt states that she struck the left side of her head on the floor at that time and "the whole room went black" pt states that appx 1.5 hours after the fall she threw up 1 time. Pt then called her NSG office and they told her to be evaluated at the ER for the hardware in her neck from a anterior approach cervical spine surgery on 07/27/18. Pt states that she has been out of the [place] collar since appx 08/10/18, per NSG direction. She placed the collar after the fall.
--- NOTE | 2018-09-24 19:24 | NUR ---
Pt to imaging, with tech, via [place].
--- NOTE | 2018-09-24 19:39 | NUR ---
Pt back to room from imaging.
== END 2018-09-24 20:31 | disposition home or self-care (01) ==
LOC: ED 19:49
DX: S16.1XXA Strain of muscle, fascia and tendon at neck level, initial encounter (principal); S09.8XXA Other specified injuries of head, initial encounter; E07.9 Disorder of thyroid, unspecified; Z87.891 Personal history of nicotine dependence; Z98.890 Other specified postprocedural states; W18.31XA Fall on same level due to stepping on an object, initial encounter; Y93.89 Activity, other specified; Y92.89 Other specified places as the place of occurrence of the external cause; Y99.8 Other external cause status
CPT/HCPCS: 70450; 72125; 99284

== ENCOUNTER 2018-10-18 11:26 | Emergency (ER) | payer OTHER, MEDICAID ==
[~2018-10-18] VITALS: Ht 162.6 cm; Wt 80.0 kg
[2018-10-18] MEDS ORDERED: OXYcodone IR 5MG TABLET PO ONE (11:47)
[2018-10-18] MEDS ORDERED: OXYcodone/APAP 5/325MG TABLET ONE (12:00)
[2018-10-18] MEDS ORDERED: PLEASE ENTER HEIGHT AND WEIGHT MC SCH (12:00)
--- NOTE | 2018-10-18 12:17 | NUR ---
MEDS GIVEN PER ORDERS PT REPORTS 06/01 PAIN
[2018-10-18] MEDS ORDERED: DIAZEPAM 5 MG TABLET ONE (12:32)
[2018-10-18] MEDS ORDERED: DIAZEPAM 5 MG TABLET PO ONE (13:00)
--- NOTE | 2018-10-18 13:05 | NUR ---
PT TAKEN TO XR AND HAS RETURNED MEDS GIVEN AGAIN PRIOR TO XR
--- NOTE | 2018-10-18 13:06 | NUR ---
[facility] ( [facility]) - had to wait for patient to be given meds
--- NOTE | 2018-10-18 13:40 | NUR ---
WAITING ON ORTHO TO CALL BACK
[2018-10-18] MEDS ORDERED: OXYcodone ORAL.CONC 20 MG/ML PO ONE (16:00)
--- NOTE | 2018-10-18 17:14 | NUR ---
pt ambulated to bathroom with brace on
[2018-10-18 17:17] VITALS: BP 124/74
== END 2018-10-18 17:53 | disposition home or self-care (01) ==
LOC: ED 15:47
DX: S32.018A Other fracture of first lumbar vertebra, initial encounter for closed fracture (principal); F32.9 Major depressive disorder, single episode, unspecified; X58.XXXA Exposure to other specified factors, initial encounter; Y93.89 Activity, other specified; Y92.89 Other specified places as the place of occurrence of the external cause; Y99.8 Other external cause status
CPT/HCPCS: 72110; 99284